=== PATIENT | female | born 1965 | race Caucasian/White ===

== ENCOUNTER 2024-11-02 11:07 | Outpatient (CLI) | payer MEDICARE, MEDICAID | END 2024-11-02 23:59 | disposition home or self-care (01) | LOC: RAD 11:07 | PROVIDERS: ATTEND Podiatrist Foot & Ankle Surgery | DX: S93.332A Other subluxation of left foot, initial encounter (principal); M19.072 Primary osteoarthritis, left ankle and foot; M77.32 Calcaneal spur, left foot; M14.672 Charcot's joint, left ankle and foot; M79.672 Pain in left foot; M14.679 Charcot's joint, unspecified ankle and foot; M79.89 Other specified soft tissue disorders; M21.6X2 Other acquired deformities of left foot; X58.XXXA Exposure to other specified factors, initial encounter; Y93.89 Activity, other specified; Y92.89 Other specified places as the place of occurrence of the external cause; Y99.8 Other external cause status | CPT/HCPCS: 73700 ==